=== PATIENT | female | born 1960 | race Caucasian/White ===

== ENCOUNTER 2024-02-22 18:39 | Emergency (ER) | payer MEDICARE ==
[~2024-02-22] VITALS: Ht 160 cm; Wt 70.3 kg
[2024-02-22 19:09] VITALS: TEMP 98.6
[2024-02-22] MEDS ORDERED: TDAP [DIPH/PERTUSSIS/TET] 0.5 ML VIAL IM ONE ×2 (19:27→19:34)
[2024-02-22] MEDS: TDAP [DIPH/PERTUSSIS/TET] 0.5 ML VIAL IM ONE (19:33)
[2024-02-22] MEDS ORDERED: BACI/NEOM/POLY B OINT PKT 1 UDPKT PACKET ONE (19:34)
[2024-02-22] MEDS: BACI/NEOM/POLY B OINT PKT 1 UDPKT PACKET TP ONE (19:36)
[2024-02-22 20:01] VITALS: BP 130/78; O2SAT 99
== END 2024-02-22 20:01 | disposition home or self-care (01) ==
LOC: ER 18:39
DX: S61.217A Laceration without foreign body of left little finger without damage to nail, initial encounter (principal); Z88.5 Allergy status to narcotic agent; W26.8XXA Contact with other sharp object(s), not elsewhere classified, initial encounter; Y93.89 Activity, other specified; Y92.89 Other specified places as the place of occurrence of the external cause; Y99.8 Other external cause status
CPT/HCPCS: 90715